=== PATIENT | female | born 1965 | race Caucasian/White ===

== ENCOUNTER → 2020-12-29 | Outpatient (CLI) | payer OTHER ==
[~2020-12-29] MED LIST: CARAFATE1 GM/10 ML PO; LISINOPRIL10 MG PO; MAGIC MOUTHWASH SWISH&SPIT; PRILOSEC20 MG PO; TRAZODONE HCL100 MG PO; XANAX 0.25 MG0.25 MG PO
[2020-12-29 13:42] LABS: ABSOLUTE LYMPHOCYTES 1.4 thou/uL (0.8-5.3); ABSOLUTE MONOCYTES 0.5 thou/uL (0.0-1.2); ABSOLUTE NEUTROPHILS 6.7 thou/uL (1.6-8.1); BASOPHILS 0.4 %; EOSINOPHILS 0.1 %; HEMATOCRIT 40.1 % (37.0-47.0); HEMOGLOBIN 14.1 gm/dL (12.0-15.0); LYMPHOCYTES 16.4 %; MCH 31.3 pg (26.0-34.0); MCHC 35.1 g/dL (28.0-37.0); MCV 89.3 fL (80.0-100.0); MONOCYTES 5.3 %; NUCLEATED RBCS 0 /100WBC; PLATELET COUNT* 266 thou/uL (150-400); POLYS 77.8 %; RBC 4.49 mil/uL (4.20-5.00); RDW-CV 12.6 % (10.5-14.5); WBC 8.6 thou/uL (4.0-11.0)
[2020-12-29 13:48] LABS: CALCIUM 9.1 mg/dL (8.5-10.1); CREATININE 0.7 mg/dL (0.6-1.3); POTASSIUM 4.2 mmol/L (3.5-5.1)
[2020-12-29 13:53] LABS: ALBUMIN 3.6 g/dL (3.4-5.0); TOTAL BILIRUBIN 0.4 mg/dL (<0.1-1.0); TOTAL PROTEIN 7.8 g/dL (6.4-8.2)
== END ==
LOC: M.LAB 12:30 → M.CT 13:00 → M.LAB 13:04
PROVIDERS: ATTEND Family Medicine
DX: K57.92 Diverticulitis of intestine, part unspecified, without perforation or abscess without bleeding (principal); R10.30 Lower abdominal pain, unspecified; Z68.26 Body mass index [BMI] 26.0-26.9, adult; D35.00 Benign neoplasm of unspecified adrenal gland

== ENCOUNTER → 2021-04-28 | Outpatient (CLI) | payer OTHER | LOC: M.ULTRA 16:30 | PROVIDERS: ATTEND Family Medicine | DX: M79.89 Other specified soft tissue disorders (principal) ==

== ENCOUNTER → 2021-05-04 | Outpatient (CLI) | payer OTHER | LOC: M.MRI 04-06 08:30 | PROVIDERS: ATTEND Family Medicine | DX: Z12.31 Encounter for screening mammogram for malignant neoplasm of breast (principal); K86.2 Cyst of pancreas ==